=== PATIENT | male | born 1955 | race African-American/Black ===

== ENCOUNTER → 2017-02-13 | Outpatient (CLI) | payer MEDICARE, OTHER ==
[2014-02-08 12:30] VITALS: BP 97/61
[~2017-02-13] MED LIST: ASPI-630 PO; CLOP75TA57 PO; FENO135C PO; FERR-26 PO; GADOBUTROL 7.5 MMOL/7.5 ML VIAL IV ONE; LISI40TA PO; METF500T4 PO; METO-247 PO; NAPR500T4 PO; NITR0.4T22 SL; OXYC-323 PO; Oxycodone Hcl/Acetaminophen PO; SIMV40TA3 PO; WARF-78 PO; Warfarin Sodium MC
--- NOTE | 2017-02-13 14:18 | KCIC ---
EXAM: Lumbar spine MRI without and with contrast. HISTORY: Right lower extremity paresthesia. TECHNIQUE: Multiplanar, multisequence magnetic resonance imaging of the lumbar spine was performed prior to and following the administration of 13 cc Gadavist intravenous contrast. 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 There is grade 1 anterolisthesis of L5 on S1, measuring 2 mm. There are suspected pars defects at this level. There is degenerative endplate remodeling at multiple levels. There is disc desiccation primarily at the mid and lower lumbar levels. There is no acute or subacute fracture. There is epidural lipomatosis. 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 At L1-L2, mild right and minimal left facet arthropathy. There is epidural lipomatosis. 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 There is mild bilateral foraminal stenosis. There is mild central canal stenosis. At L2-L3, there is minimal right and mild left facet arthropathy. There is epidural lipomatosis. 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 There is mild bilateral foraminal stenosis. There is mild central canal stenosis. At L3-L4, there is a minimal disc bulge and endplate remodeling. There is moderate right and mild left facet arthropathy. There is epidural lipomatosis. There is mild central canal stenosis. At L4-L5, there is a disc bulge and endplate remodeling. There is moderate bilateral facet arthropathy. There is epidural lipomatosis. There is moderate left foraminal stenosis with abutment of the exiting left L4 nerve root. There is severe narrowing of the thecal sac due to aforementioned lipomatosis. At L5-S1, there is a disc bulge and endplate remodeling. There is mild to moderate facet arthropathy. There is moderate bilateral foraminal stenosis with abutment of the exiting L5 nerve roots. There is severe narrowing of the thecal sac due to epidural lipomatosis. IMPRESSION: 1. Degenerative change involving the lumbar spine, described in detail above. The combination of degenerative changes, epidural lipomatosis and congenital narrowing of the central canal results in stenosis of the aforementioned levels. These findings are very similar compared to the prior study. 2. Lumbar hyperlordosis. 3. Minimal grade 1 anterolisthesis of L5 on S1 with associated pars defects, stable in appearance. Electronically signed by: Clarissa Coffey MD (02/13/2017 2:15 PM) [facility]
== END | disposition home or self-care (01) ==
LOC: KCIC MRI 12:52
PROVIDERS: ATTEND Nurse Practitioner Gerontology
DX: M48.061 Spinal stenosis, lumbar region without neurogenic claudication (principal); E88.2 Lipomatosis, not elsewhere classified; R20.2 Paresthesia of skin
CPT/HCPCS: 72158; A9585

== ENCOUNTER → 2018-08-09 | Day surgery (SDC) | payer OTHER ==
[~2018-08-09] MED LIST changes: +DIPH25CA58 PO; +DUTA0.5C PO; -FERR-26 PO; +FERR325T14 PO; -GADOBUTROL 7.5 MMOL/7.5 ML VIAL IV ONE; +HYDROmorphone 2 MG/ML VIAL IV PRN; +IV RINGERS,LACTATED 1000ML 1,000 ML IV SCH; +LIDOCAINE 1% PF 2 ML VIAL. ID PRN; +LISI-130 PO; -LISI40TA PO; +METF500T16 PO; -METF500T4 PO; +MORPHINE SULFATE 2 MG/ML VIAL. IV PRN; +NAPR-514 PO; -NAPR500T4 PO; +OMEP40CA5 PO; +ONDANSETRON PF 4 MG/2 ML VIAL. IV PRN; -OXYC-323 PO; +OXYC1TAB15 PO; +PROCHLORPERAZINE 10 MG/2 ML VIAL. IV PRN; +PROPOFOL 20 ML IV ONE; +TAMS0.4C97 PO; +fentaNYL PF VIAL 100 MCG/2 ML VIAL IV PRN
--- NOTE | 2018-08-09 14:46 | PDOC4 ---
PROCEDURE Procedure Colonoscopy Indication: CRC screen/average risk/no prior Meds: per anesthesia Findings: MICHOACANO: normal -'Scope advanced to ileocolonic anastomosis (~mid to distal ascending). Mucosa normal. Diverticulosis sigmoid with marked angulation/narrowing, making intubation difficult and requiring change to pediatric colonoscope. -No polyps, masses, etc. noted. Distal ileum OK. Internal hemorrhoids on retroflex. Alejandro. well. IMP: Diverticulosis Internal hemorrhoids. S/p ileocolectomy REC: Resume home meds and diet. Can f/u with me prn. Consider repeat exam in 10 years. ANATOLIY LEI MD August 09, 2018 14:46
[2018-08-09 15:09] VITALS: BP 110/64
== END | disposition home or self-care (01) ==
LOC: ENDOS 13:20
PROVIDERS: ATTEND Internal Medicine Gastroenterology
DX: Z12.11 Encounter for screening for malignant neoplasm of colon (principal); K57.30 Diverticulosis of large intestine without perforation or abscess without bleeding; K64.0 First degree hemorrhoids; K63.89 Other specified diseases of intestine; Z98.0 Intestinal bypass and anastomosis status; I10 Essential (primary) hypertension; E78.00 Pure hypercholesterolemia, unspecified; K21.9 Gastro-esophageal reflux disease without esophagitis; E66.9 Obesity, unspecified; M19.90 Unspecified osteoarthritis, unspecified site; Z91.011 Allergy to milk products; Z82.49 Family history of ischemic heart disease and other diseases of the circulatory system; Z79.899 Other long term (current) drug therapy; Z79.84 Long term (current) use of oral hypoglycemic drugs; Z96.651 Presence of right artificial knee joint; Z68.34 Body mass index [BMI] 34.0-34.9, adult
CPT/HCPCS: 45378; J2704

== ENCOUNTER → 2020-11-26 | Outpatient (CLI) | payer OTHER ==
[2018-08-09 15:09] VITALS: BP 110/64
[~2020-11-26] MED LIST changes: +BUPIVACAINE MPF 0.5% 10 ML VIAL. IJ ONE; -HYDROmorphone 2 MG/ML VIAL IV PRN; +IOHEXOL 300 MG/ML 50 ML VIAL. IJ ONE; -IV RINGERS,LACTATED 1000ML 1,000 ML IV SCH; -LIDOCAINE 1% PF 2 ML VIAL. ID PRN; +LIDOCAINE WITH 8.4% SOD BICARB 3 ML DISP.SYRIN. INJ ONE; +LIDOCAINE WITH 8.4% SOD BICARB 3 ML DISP.SYRIN. ONE; -MORPHINE SULFATE 2 MG/ML VIAL. IV PRN; -OMEP40CA5 PO; +OMEP40CA7 PO; -ONDANSETRON PF 4 MG/2 ML VIAL. IV PRN; -PROCHLORPERAZINE 10 MG/2 ML VIAL. IV PRN; -PROPOFOL 20 ML IV ONE; +SIMV40TA18 PO; -SIMV40TA3 PO; -WARF-78 PO; +WARF5TAB2 PO; -fentaNYL PF VIAL 100 MCG/2 ML VIAL IV PRN; +methylPREDNISolone ACETATE 80 MG/ML VIAL. IM ONE
--- NOTE | 2020-11-26 16:23 | RAD ---
EXAM: Fluoroscopic guided therapeutic left hip injection. HISTORY: Pain. TECHNIQUE: The risks of the procedure were discussed with the patient and written and verbal consent was obtained. A time out was performed. Fluoroscopic imaging of the left hip was performed and a site overlying the joint space was selected for needle entry. The skin overlying this region was sterilel y prepped, draped and infiltrated with 1% lidocaine. A spinal needle was then advanced into the joint space with fluoroscopic guidance. Appropriate needle tip positioning was confirmed with injection of 3 cc Isovue 300 contrast. Subsequently, a solution containing 1 cc 1 percent lidocaine, 2 cc bupivac dom and 80 mg Depo-Medrol was injected into the joint space. The needle was removed and a sterile ba ndage was placed at the needle entry site. The patient tolerated the procedure without difficulty and was transferred discharged in stable condition. A single fluoroscopic image was obtained. The total fluoroscopy time was 0.6 minutes. IMPRESSION: Successful fluoroscopic guided therapeutic left hip injection. Electronically signed by: Clarissa Coffey MD (11/26/2020 4:21 PM) [id number]
== END | disposition home or self-care (01) ==
LOC: RAD 12:39
PROVIDERS: ATTEND Physician Assistant
DX: M25.552 Pain in left hip (principal); M19.90 Unspecified osteoarthritis, unspecified site; I10 Essential (primary) hypertension; E78.00 Pure hypercholesterolemia, unspecified; I25.10 Atherosclerotic heart disease of native coronary artery without angina pectoris; K21.9 Gastro-esophageal reflux disease without esophagitis; F17.210 Nicotine dependence, cigarettes, uncomplicated; Z79.899 Other long term (current) drug therapy; Z98.890 Other specified postprocedural states; Z88.8 Allergy status to other drugs, medicaments and biological substances
CPT/HCPCS: 20610; 77002; J1040; J3490; Q9967